=== PATIENT | female | born 1995 | race Caucasian/White ===

== ENCOUNTER 2023-05-16 19:00 | Inpatient (IN) | payer OTHER ==
[2023-05-17 04:33] VITALS: BMI 30.9
[2023-05-17] MEDS ORDERED: Lidocaine 1% (PF) 30 ML VIAL SC PRN (05:24)
[2023-05-17] MEDS ORDERED: Promethazine HCl 25 MG/ML VIAL IM PRN ×2 (05:24→17:04)
[2023-05-17] MEDS ORDERED: hydrALAZINE 20 MG/ML VIAL SLOW IVP PRN ×2 (05:24→20:25)
[2023-05-17] MEDS ORDERED: Carboprost 250 MCG/ML AMP IM PRN (05:25)
[2023-05-17] MEDS ORDERED: Misoprostol 200 MCG TAB PR PRN (05:25)
[2023-05-17] MEDS ORDERED: Methylergonovine 0.2 MG/ML VIAL IM PRN (05:25)
[2023-05-17] MEDS ORDERED: Tranexamic Acid 1,000 MG/10 ML VIAL IVP PRN (05:25)
[2023-05-17] MEDS ORDERED: Diphenoxylate HCl/Atropine Tablet PO PRN (05:25)
[2023-05-17] MEDS ORDERED: Oxytocin 30 units/NS 500 ML 500 ML IV SCH ×2 (05:30)
[2023-05-17 05:42] LABS: Hematocrit 35.4 % (34.9-44.5); Hemoglobin 11.9 g/dL (12.0-15.5); Mean Corpuscular HGB CONC 33.6 g/dL (32.0-36.0); Mean Corpuscular Hemoglobin 29.1 pg (27.0-33.0); Mean Corpuscular Volume 86.6 fl (81.6-98.3); Platelet Count 205 10x3/uL (150-450); RBC Distribution Width 13.7 % (11.5-14.5); Red Blood Cell (RBC) Count 4.09 10x6/uL (3.90-5.03); White Blood Cell (WBC) Count 12.1 10x3/uL (3.5-10.5)
[2023-05-17 06:02] LABS: HBSAg Index 0.11 S/CO (0-0.99); Hep B Surf Ag - L&D Non-Reactive S/CO (NonReactive); Syphilis Antibody Nonreactive (Nonreactive); Syphilis Antibody Index 0.02 S/CO (<1.00 Non-Reactive)
[2023-05-17] MEDS: Misoprostol 100 MCG TAB VAG SCH (06:10)
[2023-05-17] MEDS ORDERED: Lactated Ringer's 1,000 ML IV SCH (06:15)
[2023-05-17] MEDS ORDERED: Bupivacaine 0.25% HCL 30 ML VIAL ONE (08:00)
[2023-05-17] MEDS ORDERED: fentaNYL/Ropivacaine Epidural 100 ML ONE (16:43)
[2023-05-17] MEDS ORDERED: Acetaminophen 325 MG TAB PO PRN (17:04)
[2023-05-17] MEDS ORDERED: Moisturizing Cream (Eucerin) 113 GM JAR TOP PRN (17:04)
[2023-05-17] MEDS ORDERED: diphenhydrAMINE 50 MG/ML VIAL IVP PRN (17:04)
[2023-05-17] MEDS ORDERED: Lactated Ringer's 500 ML IV PRN (17:04)
[2023-05-17] MEDS ORDERED: Naloxone HCl 0.4 mg/ml Vial IVP PRN ×2 (17:04)
[2023-05-17] MEDS ORDERED: ePHEDrine Sulfate 50 MG/10 ML VIAL SLOW IVP PRN (17:04)
[2023-05-17] MEDS ORDERED: Sodium Bicarbonate 2.5 MEQ/5 ML VIAL ONE (17:07)
[2023-05-17] MEDS ORDERED: fentaNYL 2 mcg/Ropivacaine 0.2% Epidural 100 ML CADD EPIDURAL SCH (17:15)
[2023-05-17] MEDS ORDERED: Communication Order-Pharmacy FS SCH (17:15)
[2023-05-17] MEDS ORDERED: Lanolin Ointment 7 GM TUBE TOP PRN (20:25)
[2023-05-17] MEDS ORDERED: Boostrix 0.5 ML (Tdap) VIAL (>/=7 yrs of age) IM ONE (20:25)
[2023-05-17] MEDS ORDERED: Bisacodyl 10 MG SUPP PR PRN (20:25)
[2023-05-17] MEDS ORDERED: Milk Of Magnesia 30 ML UDCUP PO PRN (20:25)
[2023-05-17] MEDS ORDERED: Preparation H Ointment 28 GM TUBE PR PRN (20:25)
[2023-05-18] MEDS: Ibuprofen 800 MG TAB PO SCH ×4 (05:00→21:32)
[2023-05-18] MEDS: Ferrous Sulfate 325 MG TAB PO SCH (07:16)
[2023-05-18] MEDS: Docusate 100 MG CAP PO SCH ×3 (07:16→21:32)
[2023-05-18] MEDS: Misoprostol 100 MCG TAB VAG SCH (07:17)
[2023-05-18] MEDS: Prenatal Vitamin 1 TAB PO SCH (07:49)
[2023-05-18] MEDS ORDERED: Famotidine 20 MG TAB PO SCH (22:00)
[2023-05-19] MEDS: Ibuprofen 800 MG TAB PO SCH (05:41)
[2023-05-19 07:45] VITALS: BP 99/60; TEMP 97.8
[2023-05-19] MEDS: Prenatal Vitamin 1 TAB PO SCH (08:26)
[2023-05-19] MEDS: Docusate 100 MG CAP PO SCH (08:26)
[2023-05-19] MEDS ORDERED: Famotidine 20 MG TAB PO SCH (09:00)
[2023-05-19] MEDS: Ferrous Sulfate 325 MG TAB PO SCH (09:57)
== END 2023-05-19 11:15 | disposition home or self-care (01) | DRG 807 ==
LOC: CSHLD 05-17 03:49 → CSHPP 05-17 22:55
PROVIDERS: ADMIT Obstetrics & Gynecology; ATTEND Obstetrics & Gynecology
PROC: 10E0XZZ Delivery of Products of Conception, External Approach (ICD-10-PCS; principal; 2023-05-18)
PROC: 3E0P7VZ Introduction of Hormone into Female Reproductive, Via Natural or Artificial Opening (ICD-10-PCS; 2023-05-18)
PROC: 3E033VJ Introduction of Other Hormone into Peripheral Vein, Percutaneous Approach (ICD-10-PCS; 2023-05-18)
PROC: 10907ZC Drainage of Amniotic Fluid, Therapeutic from Products of Conception, Via Natural or Artificial Opening (ICD-10-PCS; 2023-05-18)
PROC: 3E033XZ Introduction of Vasopressor into Peripheral Vein, Percutaneous Approach (ICD-10-PCS; 2023-05-18)
DX: O26.643 Intrahepatic cholestasis of pregnancy, third trimester (principal); Z37.0 Single live birth; Z3A.37 37 weeks gestation of pregnancy
CPT/HCPCS: 51702; 85027; 86780; 86850; 86900; 86901; 87340; S0020